=== PATIENT | female | born 1940 | race Caucasian/White ===

== ENCOUNTER 2019-02-15 20:06 | Inpatient (IN) | payer MEDICARE, BC ==
[~2019-02-15] VITALS: Ht 149.9 cm; Wt 65.0 kg
[2019-02-15 20:58] LABS: BASOPHILS # (AUTO) 0.01 x10^3/uL (0-0.1); BASOPHILS % (AUTO) 0 % (0-1); EOSINOPHILS # (AUTO) 0.26 x10^3/uL (0-0.4); EOSINOPHILS % (AUTO) 3 % (1-7); LYMPHOCYTES # (AUTO) 1.28 x10^3/uL (1-3.4); LYMPHOCYTES % (AUTO) 13 % (22-44); MD NO; MEAN CORPUSCULAR HEMOGLOBIN 30.9 pg (27.0-34.8); MEAN CORPUSCULAR HGB CONC 32.8 g/dL (32.4-35.8); MEAN CORPUSCULAR VOLUME 94.1 fL (80-100); MEAN PLATELET VOLUME 8.2 fL (7.4-10.4); MONOCYTES # (AUTO) 0.67 x10^3/uL (0.2-0.8); MONOCYTES % (AUTO) 7 % (2-9); NEUTROPHILS # (AUTO) 7.89 x10^3/uL (1.8-6.8); NEUTROPHILS % (AUTO) 78 % (42-75); PLATELET COUNT 288 x10^3/uL (130-400); RED CELL DISTRIBUTION WIDTH 13.6 % (9.6-15.2)
[2019-02-15 21:10] LABS: ALBUMIN 3.9 g/dL (3.4-5.0); ANION GAP 9 mmol/L (5-15); CALCIUM 9.2 mg/dL (8.5-10.1); CHLORIDE 108 mmol/L (98-107); CREATININE 0.63 mg/dL (0.55-1.02)
[2019-02-15 21:14] LABS: ALANINE AMINOTRANSFERASE 16 U/L (12-78); ALKALINE PHOSPHATASE 97 U/L (45-117); BILIRUBIN,TOTAL 0.6 mg/dL (0.2-1.0); TOTAL PROTEIN 7.2 g/dL (6.4-8.2); TROPONIN I < 0.015 ng/mL (0.000-0.045)
[2019-02-15] MEDS ORDERED: ASPI-496 PO (21:18)
--- NOTE | 2019-02-15 21:18 | NUR ---
PT IN HOSPITAL GOWN. LABS HAVE BEEN DRAWN. PT AWARE A UA IS NEEDED. PT ON VITALS MONITORS. WILL CONITIUE TO MONITOR.
[2019-02-15] MEDS ORDERED: HYDROcodone/APAP 5/325 TABLET PO ONE (21:30)
--- NOTE | 2019-02-15 22:01 | NUR ---
IV STARTED, PT TO CT AT THIS TIME.
--- NOTE | 2019-02-15 22:21 | NUR ---
PT UNSURE OF THE NAMES OF HER MEDS. MED REC UPDATED BEST PT COULD REMEMBER
[2019-02-15] MEDS ORDERED: HYDROcodone/APAP 5/325 TABLET ONE (23:07)
[2019-02-15 23:13] LABS: MICROSCOPIC AUTO
--- NOTE | 2019-02-15 23:13 | NUR ---
PT ABLE TO AMBLATE TO BATHROOM WITH WALKING STICK STEADILY. URINE SENT TO LAB. PT MEDICATED FOR BACK PAIN WITH ORDERED MED. AWAITING URINE RESULTS. PT RESTING IN BED. CALL LIGHT WITHIN REACH.
[2019-02-15 23:14] LABS: CULTURE INDICATED? YES
--- NOTE | 2019-02-15 23:52 | NUR ---
PT BLADDER SCANNED FOR 110ML POST RESIDUAL VOID.
--- NOTE | 2019-02-16 00:44 | NUR ---
PT AWARE OF ABD CT, HAS NOT GONE AT THIS TIME. PT PANTS REMOVED. PT RESTING IN BED. PT ABLE TO MOVE AROUND WITH LESS PAIN. BILAT BEDRAILS UP. WILL CONTINUE TO MONITOR.
[2019-02-16] MEDS ORDERED: CEFTRIAXONE PMX 2GM/50ML 50 ML IV SCH (01:30)
[2019-02-16] MEDS ORDERED: CEFTRIAXONE PMX 2GM/50ML 50 ML ONE (01:46)
--- NOTE | 2019-02-16 01:54 | NUR ---
BREAK RN: ANTIBIOTICS STARTED. NO BLOOD CULTURES PER ERP. ADMITTING MD AT BEDSIDE.
[2019-02-16] MEDS ORDERED: HYDROcodone/APAP 5/325 TABLET PO PRN (02:00)
[2019-02-16] MEDS ORDERED: HEPARIN 5,000 UNITS/ML, 1ML SQ SCH (02:00)
[2019-02-16] MEDS ORDERED: BISACODYL 10 MG SUPP PR PRN (02:00)
[2019-02-16] MEDS ORDERED: LACTATED RINGERS 1,000 ML IV SCH (02:00)
[2019-02-16] MEDS ORDERED: LABETALOL 5MG/ML, 20ML IVPush PRN (02:00)
[2019-02-16] MEDS ORDERED: morphine SULFATE 10 MG/ML, 1ML IVPush PRN (02:00)
[2019-02-16] MEDS ORDERED: ONDANSETRON 2MG/ML, 2ML IVPush PRN (02:00)
[2019-02-16] MEDS ORDERED: ACETAMINOPHEN 325 MG TABLET PO PRN (02:00)
[2019-02-16] MEDS ORDERED: POLYETHYLENE GLYCOL 17 GM PACKET PO PRN (02:00)
[2019-02-16] MEDS ORDERED: METRONIDAZOLE PMX 500MG/100ML 100 ML IV SCH ×2 (02:00→09:00)
[2019-02-16] MEDS ORDERED: MORPHINE SULFATE 4 MG/ML, 1ML ONE (02:12)
[2019-02-16 02:48] VITALS: BP 184/84
[2019-02-16 03:49] LABS: HEMOGLOBIN A1C 5.4 % (4.2-6.3)
[2019-02-16] MEDS ORDERED: ENOXAPARIN 40 MG/0.4 ML SQ SCH (04:00)
[2019-02-16] MEDS ORDERED: OMNIPAQUE 350 MG/ML, 100ML BOTTLE ONE (05:12)
[2019-02-16 07:03] VITALS: BP 148/75
[2019-02-16] MEDS ORDERED: SENNA/DOCUSATE TABLET PO SCH (09:00)
[2019-02-16] MEDS ORDERED: ASPIRIN 81 MG TABLET EC PO SCH (09:00)
[2019-02-16] MEDS ORDERED: HYDR-3240 PO (09:03)
[2019-02-16] MEDS ORDERED: GLIP5TAB10 PO (09:03)
[2019-02-16] MEDS ORDERED: CAND8TAB4 PO (09:03)
[2019-02-16] MEDS ORDERED: SIMV40TA3 PO (09:03)
[2019-02-16] MEDS ORDERED: MORP-52 PO (09:03)
[2019-02-16] MEDS ORDERED: CARV3.12 PO (09:03)
[2019-02-16] MEDS ORDERED: CEFD300C37 PO (11:55)
[2019-02-16 12:10] VITALS: BP 136/77
[2019-02-17] MEDS ORDERED: CEFTRIAXONE PMX 1GM/50ML 50 ML IV SCH (01:00)
== END 2019-02-16 15:22 | disposition home or self-care (01) | DRG 690 ==
LOC: ED 22:35 → EDIP 02-16 01:36 → 3NE 02-16 02:39 → DCLOUNGE 02-16 15:14
PROVIDERS: ADMIT Family Medicine; ATTEND Family Medicine
DX: N13.6 Pyonephrosis (principal); F11.20 Opioid dependence, uncomplicated; J96.10 Chronic respiratory failure, unspecified whether with hypoxia or hypercapnia; M48.54XA Collapsed vertebra, not elsewhere classified, thoracic region, initial encounter for fracture; M48.56XA Collapsed vertebra, not elsewhere classified, lumbar region, initial encounter for fracture; K57.30 Diverticulosis of large intestine without perforation or abscess without bleeding; E11.9 Type 2 diabetes mellitus without complications; E27.8 Other specified disorders of adrenal gland; E78.00 Pure hypercholesterolemia, unspecified; E78.5 Hyperlipidemia, unspecified; G89.29 Other chronic pain; I10 Essential (primary) hypertension; J44.9 Chronic obstructive pulmonary disease, unspecified; J84.10 Pulmonary fibrosis, unspecified; K59.00 Constipation, unspecified; K76.89 Other specified diseases of liver; M47.816 Spondylosis without myelopathy or radiculopathy, lumbar region; Z66 Do not resuscitate; N28.89 Other specified disorders of kidney and ureter; I25.2 Old myocardial infarction; Z79.84 Long term (current) use of oral hypoglycemic drugs; Z82.49 Family history of ischemic heart disease and other diseases of the circulatory system; Z87.442 Personal history of urinary calculi; Z87.891 Personal history of nicotine dependence; Z90.710 Acquired absence of both cervix and uterus; Z99.81 Dependence on supplemental oxygen
CPT/HCPCS: 36415; 71045; 71250; 74177; 80053; 81001; 83036; 83605; 84145; 84484; 85025; 87040; 87086; 93005; 96374; 99285; J0696; Q9967; J2270; J7120